=== PATIENT | female | born 1955 | race Caucasian/White ===

== ENCOUNTER → 2018-02-01 10:12 | Outpatient (CLI) | payer OTHER, SELFPAY ==
--- NOTE | 2018-02-01 10:15 | RAD_ITS ---
STUDY: X-RAY - RIGHT KNEE REASON FOR EXAM: Female, 62 years old. Three-year follow-up total knee replacement TECHNIQUE: 4 view(s) of the knee. COMPARISON: Prior study of 01/31/2016 FINDINGS: Status post total right knee replacement changes are seen with implants appearing in good position. There is no evidence of implant loosening or new associated fracture or dislocation. RAD/Knee 4 or More Views IMPRESSION: Status post total right knee replacement changes seen with implants appearing in good position. There is no evidence of implant loosening or new associated fracture or dislocation. Findings appear stable in the interval. Electronically Signed: Misael Edmonds MD at 22:58 EDT , Service support ,
--- NOTE | 2018-02-01 10:20 | RAD_ITS ---
STUDY: X-RAY - LEFT KNEE REASON FOR EXAM: Female, 62 years old. Three-year follow-up, total knee replacement TECHNIQUE: 4 view(s) of the knee. COMPARISON: Previous study of January 31, 2016 FINDINGS: Status post total left knee replacement changes are seen with implants appearing in good position. There is no evidence of implant loosening or new associated fracture or dislocation. Findings are stable in the interval. RAD/Knee 4 or More Views IMPRESSION: Status post total left knee replacement changes with implants appearing in good position. There is no evidence of implant loosening or new associated fracture or dislocation. Electronically Signed: Misael Edmonds MD at 23:56 EDT , Service support ,
== END ==
PROVIDERS: Family Provider Family Medicine; PCP Family Medicine; Visit Provider Orthopaedic Surgery
DX: Z96.651 Presence of right artificial knee joint (principal); Z96.652 Presence of left artificial knee joint
CPT/HCPCS: 73564

== ENCOUNTER → 2021-06-12 06:32 | Outpatient (CLI) | payer OTHER, SELFPAY ==
--- NOTE | 2021-06-12 06:38 | RAD_ITS ---
STUDY: X-RAY - LEFT WRIST REASON FOR EXAM: Female, 65 years old. Pain. TECHNIQUE: 3 view(s) of the wrist were obtained. COMPARISON: None. FINDINGS: Generalized osteopenia. Mild arthrosis of the radiocarpal articulation. Moderate arthrosis of the radiocarpal row. Moderate to severe arthrosis of the first CMC joint with multiple small intra-articular osteochondral bodies. Moderate arthrosis of the visualized MCP joints. The soft tissue structures are unremarkable. RAD/Wrist min 3 Views IMPRESSION: Osteopenia with moderate osteoarthritic changes as described. 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 Electronically Signed: Aamir Burgos MD at 13:10 EDT , Service support ,
--- NOTE | 2021-06-12 06:39 | RAD_ITS ---
STUDY: X-RAY - RIGHT HAND REASON FOR EXAM: Female, 65 years old. PAIN TECHNIQUE: 2 view(s) of the hand. COMPARISON: None. FINDINGS: Normal radiocarpal articulation. Normal distal radioulnar joint. Normal visualized carpal bones. Normal carpal articulations There is degenerative arthrosis of the carpometacarpal articulation of the thumb with lateral subluxation of the first metacarpus. Normal second through fifth carpometacarpal joints. Normal metacarpi. There is degenerative arthrosis of the metacarpophalangeal (MCP) joints. Normal interphalangeal joint of the thumb. Normal proximal and distal phalanges of the thumb. Normal metacarpophalangeal joints of the second through fifth fingers. There is diffuse articular joint space narrowing of the proximal and distal interphalangeal joints of the second through fifth fingers, but without erosive changes or periarticular soft tissue swelling. Normal phalanges of the second through fifth fingers. Soft tissue swelling. RAD/Hand 2 Views IMPRESSION: Degenerative changes at the proximal and distal interphalangeal joints. Degenerative changes at the second and third metacarpophalangeal joints. Soft tissue swelling. Electronically Signed: Lang Frias MD at 10:19 EDT , Service support ,
--- NOTE | 2021-06-12 06:39 | RAD_ITS ---
STUDY: X-RAY - LEFT HAND REASON FOR EXAM: Female, 65 years old. And pain. TECHNIQUE: 2 view(s) of the hand. COMPARISON: None. FINDINGS: Generalized osteopenia. Mild arthrosis at the radiocarpal articulation. Moderate arthrosis of the radiocarpal row. Severe arthrosis of the first CMC joint. Moderate arthrosis of the MTP and IP joints with osteophyte formation at the second MCP joint. Central erosive changes of the DIP joint of the third digit, the PIP joint of the fourth digit and the DIP joint of the fifth digit. The soft tissue structures are unremarkable. RAD/Hand 2 Views IMPRESSION: Osteopenia with osteoarthritic changes as described. Central erosions of the DIP joint of the third digit, PIP joint of the fourth digit and the DIP joint of the fifth digit. No acute abnormality. Electronically Signed: Aamir Burgos MD at 13:08 EDT , Service support ,
--- NOTE | 2021-06-12 06:39 | RAD_ITS ---
STUDY: X-RAY - RIGHT WRIST REASON FOR EXAM: Female, 65 years old. Pain. TECHNIQUE: 3 view(s) of the wrist were obtained. COMPARISON: None. FINDINGS: Generalized osteopenia. Mild arthrosis of the radiocarpal articulation. Moderate arthrosis of the radiocarpal row. Moderate to severe arthrosis of the first CMC joint with multiple small intra-articular osteochondral bodies. Moderate arthrosis of the visualized MCP joints. The soft tissue structures are unremarkable. RAD/Wrist min 3 Views IMPRESSION: Osteopenia with moderate osteoarthritic changes as described. 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 Electronically Signed: Aamir Burgos MD at 13:10 EDT , Service support ,
== END ==
PROVIDERS: PCP Family Medicine; Referring Provider Physician Assistant; Visit Provider Family Medicine
DX: M25.531 Pain in right wrist (principal); M25.532 Pain in left wrist; M79.644 Pain in right finger(s); M79.645 Pain in left finger(s)
CPT/HCPCS: 73110; 73120

== ENCOUNTER → 2021-08-07 11:12 | Outpatient (CLI) | payer OTHER, SELFPAY ==
--- NOTE | 2021-08-07 11:15 | RAD_ITS ---
STUDY: X-RAY - LEFT SHOULDER REASON FOR EXAM: Female, 66 years old. Shoulder pain for 3 weeks. Lifting injury. TECHNIQUE: 4 view(s) of the shoulder. COMPARISON: None. FINDINGS: Normal glenohumeral articulation. Normal acromioclavicular joint. Normal acromion. There is no acute fracture, dislocation or destructive osseous pathology. There is demineralization of the humerus and visualized osseous structures. The soft tissue structures are unremarkable. Normal visualized pulmonary apex. RAD/Shoulder min 2 Views IMPRESSION: Osteopenia. There is no acute fracture or dislocation. Electronically Signed: Zhou Leiva DO at 16:08 EDT Tel [phone], Service support ,
== END ==
PROVIDERS: PCP Family Medicine; Referring Provider Physician Assistant; Visit Provider Physician Assistant
DX: M25.512 Pain in left shoulder (principal)
CPT/HCPCS: 73030

== ENCOUNTER 2021-08-30 16:00 | Outpatient (RCR) | payer OTHER, SELFPAY ==
--- NOTE | 2021-09-02 10:58 | MASS.EVAL ---
Massage Therapy Evaluation: Initial Evaluation Date: 08/30/2021 SUBJECTIVE: Cris is a 66 year old female who was referred to the [facility] facility for a massotherapy evaluation by Dr. Monterroso with the diagnosis of neck pain. She presents today with the symptoms of pain, stiffness and tension in the neck, head, mid back, low back, and hips. Cris reports having a past medical history of neck and back pain and complains of radiating pain from her neck into her shoulders. OBJECTIVE: Upon observation Cris has poor posture with her head and shoulders forward from the neutral position in sitting and standing. After examination and palpation, I found Cris to have high muscle tension with tenderness and myofascial restrictions in her sub occipitals, levator scapulae, trapezius, rhomboids, scalenes, and thoracic paraspinals. Her QL?s, lumbar paraspinals, piriformis, ITB?s, glute medius and minimus all were very tight with fascial restrictions, tender points and trigger points. The first treatment consisted of a one hour massage to her upper body with myofascial release, muscle stripping, trigger point compression techniques, and cervical manual traction. ASSESSMENT: I feel that Cris is a good candidate for massotherapy at this time. She had a favorable response to the first treatment with reduction in her muscle aches, pain, and tension. She also had improvement in her cervical flexibility and low back flexibility. PLAN: The plan of care was reviewed with the patient. The patient is to be seen on an as needed basis for a total of ten sessions with the recommendation of once every month for a one hour treatment.
--- NOTE | 2021-11-18 12:58 | MASS.DISCH ---
Massage Therapy Discharge Summary: Discharge Date: 11/18/2021 Cris was seen for a massotherapy evaluation on 08/30/2021 with the diagnosis of neck pain. She was treated with one session of a one of massage to the upper body and hamstrings. At this time this patient is being discharged from our care at [facility] facility.
== END 2021-08-30 19:00 | disposition home or self-care (01) ==
LOC: MASS 16:00
PROVIDERS: PCP Family Medicine; Referring Provider Family Medicine; Visit Provider Family Medicine
DX: M54.2 Cervicalgia (principal)
CPT/HCPCS: 97124

== ENCOUNTER → 2022-09-13 | Outpatient (CLI) | payer MEDICARE, SELFPAY ==
[2022-09-13 10:29] LABS: Erythrocyte Sedimentation Rate 42 mm/hr (0-30)
[2022-09-13 11:26] LABS: CRP 5.38 mg/L (0.0-3.0); Rheumatoid Factor < 10.0 IU/mL (<15)
[2022-09-16 17:29] LABS: Anti-Nuclear Antibody Test Negative (.)
== END | disposition home or self-care (01) ==
LOC: MTLAB 09:43 → LAB 09:43
PROVIDERS: PCP Family Medicine; Referring Provider Physician Assistant; Visit Provider Physician Assistant
DX: M25.50 Pain in unspecified joint (principal)
CPT/HCPCS: 36415; 85652; 86038; 86140; 86431

== ENCOUNTER 2024-04-09 09:46 | Emergency (ER) | payer MEDICARE, SELFPAY ==
[2024-04-09 09:46] VITALS: BP 206/91; BP 210/97; PULSE 79; PULSE 81; RESP 14; TEMP 36.1; O2SAT 96; O2SAT 98; BMI 38.9
--- NOTE | 2024-04-09 10:18 | EKG12_ITS ---
Test Reason : HTN Blood Pressure : / mmHG Vent. Rate : 067 BPM Atrial Rate : 067 BPM P-R Int : 136 ms QRS Dur : 078 ms QT Int : 416 ms P-R-T Axes : 041 046 055 degrees QTc Int : 439 ms Normal sinus rhythm Low voltage QRS Borderline ECG Confirmed by Yoel Akins ([id number]), communications editor ALEX PAVON ([id number]) on 04/11/2024 9:06:55 AM Referred By: Confirmed By:Yoel Akins
--- NOTE | 2024-04-09 10:19 | EDS_ITS ---
HPI History of Present Illness Chief Complaint: Hypertension Detail of Chief Complaint: Hypertension Informant: patient Narrative Narrative: Patient presents to the emergency department complaint of elevated blood pressure today. Patient states that she had cataract surgery yesterday. Patient has some mild discomfort to her eyes. She denies headache. She denies chest pain or shortness of breath. She took her blood pressure this morning when she does every morning and it was 185/100. Patient states 2 days ago her blood pressure was 167/95 and had her lisinopril increased to 20 mg a day. She took her blood pressure immediately after taking her lisinopril this morning. Patient also states that she had a cough for about 5 days and was told to take Mucinex DM. She denies feeling short of breath. She denies fevers or chills. She denies urinary symptoms. PFSH PFS Home Medications ?Medication ?Instructions ?Recorded ?Last Taken ?Type magnesium 30 mg tablet 30 mg PO QODAY 02/02/14 Unknown History duloxetine 30 mg capsule,delayed 30 mg PO DAILY ##30 02/20/14 Unknown Rx release fentanyl 50 mcg/hr transdermal 50 mcg TRANSDERM. Q3D ##10 02/20/14 Unknown Rx patch ferrous sulfate 325 mg (65 mg 325 mg PO TIDCM ##90 02/20/14 Unknown Rx iron) tablet hydrocodone-acetaminophen 5-325mg 1 tab PO Q6H PRN PRN Moderate 02/20/14 Unknown Rx 5mg-325mg Pain (4-05/02) ##60 zolpidem 5 mg tablet 10 mg (2 x 5 mg) PO QHS PRN PRN 02/20/14 Unknown Rx INSOMNIA ##20 atorvastatin 10 mg tablet 10 mg PO QHS cholesterol 04/09/24 Unknown History celecoxib 100 mg capsule 100 mg PO BID 04/09/24 Unknown History escitalopram oxalate 20 mg tablet 20 mg PO DAILY 04/09/24 Unknown History lisinopril 20 mg tablet 20 mg PO DAILY 04/09/24 Unknown History ofloxacin 0.3 % eye drops 1 drp LEFT EYE 4X/DAY 04/09/24 Unknown History Allergy/AdvReac Type Severity Reaction Status Date / Time codeine AdvReac Nausea Verified 04/04/24 16:20 Social History Smoking Status: Current every day smoker ROS ROS ED ROS Narrative Hypertension Review of Systems ROS Unobtainable: other Constitutional Constitutional ED: Reports lethargy; Denies chills, fever(s), sweats or weight loss Eyes Eyes: Denies blurry vision, change in vision or diplopia ENT ENT ED: Denies rhinorrhea or sore throat Cardiovascular Cardiovascular: Reports chest pain and racing heartbeat; Denies orthopnea Respiratory/Chest Respiratory/Chest: Reports cough, dyspnea and dyspnea on exertion; Denies orthopnea or sputum Gastrointestinal Gastrointestinal: Denies abdominal pain, diarrhea, nausea or vomiting Genitourinary Genitourinary ED: Denies dysuria, hematuria or urinary frequency Musculoskeletal Musculoskeletal: Denies arthralgias, back pain, myalgias or neck pain Integumentary Denies abscess, Abrasions or rash Neurologic Neurologic: Denies headache(s) or weakness Psychiatric Psychiatric: Denies anxiety, depression or suicidal thoughts Endocrine Endocrinology: Denies polydipsia, polyphagia or polyuria Hematologic/Lymphatic Hematologic/Lymphatic: Denies easy bleeding, easy bruising or lymphadenopathy Allergic/Immunologic Allergic/Immunologic ED: Denies mouth swelling, tongue swelling or urticaria EXAM Physical Exam Const Vital Signs: 04/09/24 09:46 04/09/24 09:46 04/09/24 11:41 Temperature 97 F L Temperature Source Temporal Pulse Rate 81 79 Respiratory Rate 14 14 Blood Pressure 206/91 H 210/97 H 193/92 H Blood Pressure Mean 129 134 125 Pulse Ox 96 98 96 Oxygen Delivery Method Room Air Room Air Room Air Positive well nourished and well developed General Appearance ED: well developed and NAD HEENT Reports TM's clear and moist mucous membranes normocephalic and atraumatic; Negative for trauma or tenderness Tympanic Membrane ED: Yes TM's clear Eyes PERRL and EOMs intact bilaterally General Eye ED: Negative for pale conjunctiva or scleral icterus Neck no lymphadenopathy, supple and no JVD General: Negative for tenderness Chest Wall inspection of chest normal and palpation of chest normal Chest: Negative for tenderness Resp normal respiratory effort and clear to auscultation bilaterally Effort and Inspection: Negative for respiratory distress or pain with movement Auscultation: Negative for rhonchi, wheezes or diminished lung sounds Cardio regular rate, regular rhythm, S1 normal heart sound, S2 normal heart sound and no murmurs Peripheral Pulses: pulses 2+ throughout GI normal to inspection, nondistended, normoactive bowel sounds, soft to palpation, non-tender, non-distended and no masses Back/Spine no CVA tenderness and no thoracic nor lumbar tenderness Extremity normal to inspection General Extremety ED: Negative for edema General Extremity: Negative for edema Neuro oriented x3, CN's II-XII intact bilaterally, no sensory deficits noted and gait normal Sensorium / Orientation: awake, alert, oriented to person, oriented to place and oriented to time Motor Exam: strength 5/5 throughout and strength abnormal Psych mental status grossly normal Skin no rashes or lesions noted and no wounds MDM MDM MDM Narrative Medical decision making narrative: Patient presents to the emergency department complaint of hypertension. She has a history of hypertension and recently had her lisinopril increased. Also currently taking Mucinex DM. Suspect blood pressure may be elevated related to the Mucinex DM. Will obtain basic labs and EKG. EKG obtained arrival showed a sinus rhythm with rate of 67 bpm with no acute ST segment changes. CBC with differential showed a white count 6.3 with hemoglobin 13.3 and platelet count of 277. Chemistries unremarkable. Troponin was normal at 9. BUN 13 and creatinine 0.85. Chest x-ray unremarkable. While observing patient in the ER her blood pressure latest is 180s over 90s. Will give her 1 dose of hydralazine 5 mg IV and will discharge to home. Clinically she looks well. I advised her to discontinue her Mucinex dm. Advised her to keep a journal of her blood pressures and follow-up with her primary care physician within next 5 to 7 days. Lab Data Attestation: I reviewed the patient's lab results. Labs: Laboratory Results - last 24 hr 04/09/24 10:10 WBC 6.3 RBC 4.65 Hgb 13.3 Hct 43.0 MCV 92.5 MCH 28.6 MCHC 30.9 L RDW Std Deviation 45.6 H RDW Coeff of Sadie 13.3 Plt Count 277 MPV 9.9 Immature Gran % (Auto) 0.500 Neut % (Auto) 51.6 Lymph % (Auto) 37.9 [place] % (Auto) 5.7 Eos % (Auto) 3.7 Baso % (Auto) 0.6 Absolute Neuts (auto) 3.2 Absolute Lymphs (auto) 2.38 Nucleated RBC % 0 Sodium 140 Potassium 4.0 Chloride 107 Carbon Dioxide 29.0 Anion Gap 4 L BUN 13 Creatinine 0.85 Estim Creat Clear Calc 66.83 Est GFR (MDRD) Af Amer 85 Est GFR (MDRD) Non-Af 70 BUN/Creatinine Ratio 15.3 Glucose 102 Calcium 9.1 Troponin I High Sens 9 Radiography Diagnostic Testing: Clinical Impression(s) from Imaging Studies Chest X-Ray 04/09/24 10:40 IMPRESSION: Mild cardiomegaly. Electronically Signed: Rodrigo Momin MD at 10:54 EDT Reading Location ID and State: [facility] / [place] Tel , Service support , 1 view chest x-ray obtained interpreted by myself as no evidence of infiltrate or pneumothorax or acute disease process. Radiology in agreement felt there was mild cardiomegaly. EKG Initial EKG: Attestation: I personally reviewed and interpreted this EKG as follows: Comments: Sinus rhythm with rate of 67 bpm with no acute ST segment changes Discharge Plan Triage Chief Complaint: Hypertension ED Provider: Talia Nunez Dx/Rx/DC Orders Clinical Impression: Hypertension Instructions: ED Hypertension, Established Prescriptions: No Action magnesium 30 MG tablet 30 mg PO QODAY Patient Comments: supplement fentanyl 50 MCG patch 50 mcg TRANSDERM. Q3D Qty: 10 0RF Patient Comments: PAIN PATCH hydrocodone-acetaminophen 1 TABLET tablet 1 tab PO Q6H PRN PRN (Reason: Moderate Pain (4-6/10)) Qty: 60 0RF Patient Comments: PAIN ferrous sulfate 325 MG tablet 325 mg PO TIDCM Qty: 90 0RF Patient Comments: IRON SUPPLEMENT zolpidem 5 MG tablet 10 mg PO QHS PRN PRN (Reason: INSOMNIA) Qty: 20 0RF Patient Comments: INSOMNIA duloxetine 30 MG capsule 30 mg PO DAILY Qty: 30 0RF Patient Comments: DEPRESSION/PAIN atorvastatin 10 mg tablet 10 mg PO QHS ofloxacin 0.3 % drops 1 drp LEFT EYE 4X/DAY lisinopril 20 mg tablet 20 mg PO DAILY celecoxib 100 mg capsule 100 mg PO BID escitalopram oxalate 20 mg tablet 20 mg PO DAILY Primary Care Provider: Fitz Burger Referrals: Fitz Burger MD [Primary Care Provider] - 5-7 Days Print Language: Georgian Disposition Disposition: Home, Self Care
[2024-04-09 10:32] LABS: Absolute Lymphocyte Count 2.38 X10^3/uL (0.83-4.51); Absolute Neutrophil Count 3.2 X10^3/uL (2.0-7.7); Basophil# 0.04 X10^3/uL; Basophil% 0.6 % (0-1); Eosinophil# 0.23 X10^3/uL; Eosinophils% 3.7 % (0-5); Hemoglobin 13.3 g/dL (12.0-15.0); Lymphocyte # 2.38 X10^3/ul (0.83-4.51); Lymphocyte % 37.9 % (19-41); Mean Corp Hgb Conc 30.9 g/dL (32-36); Mean Corpuscular Hgb 28.6 pg (27.0-32.0); Mean Corpuscular Volume 92.5 fL (81-99); Mean Platelet Vol. 9.9 fl (6.2-12.0); Monocyte# 0.36 X10^3/uL; Monocyte% 5.7 % (0-10); NRBC Flagged by Analyzer 0 % (0-5); Neutrophil # 3.24 X10^3/uL (2.7-7.7); Neutrophil % 51.6 % (47-70); Platelet Count 277 K/mm3 (150-450); RBC Distribution Width CV 13.3 % (11.6-14.6); RBC Distribution Width SD 45.6 fl (35.1-43.9); Red Blood Count 4.65 M/mm3 (4.2-5.4); White Blood Count 6.3 K/mm3 (4.4-11.0)
--- NOTE | 2024-04-09 10:40 | RAD_ITS ---
EXAM: XR CHEST, 1 VIEW CLINICAL INDICATION: htn TECHNIQUE: Frontal view of the chest. COMPARISON: No relevant prior studies available. FINDINGS: LUNGS AND PLEURAL SPACES: Normal. No consolidation or edema. No pneumothorax. No effusion. HEART: Heart is mildly enlarged. MEDIASTINUM: No mediastinal or hilar mass. BONES/JOINTS: No acute abnormality. RAD/Chest 1 View (Portable) IMPRESSION: Mild cardiomegaly. Electronically Signed: Rodrigo Momin MD at 10:54 EDT ,
[2024-04-09 10:49] LABS: Anion Gap 4 (5-15); BUN 13 mg/dL (7-18); BUN/Creat Ratio 15.3 RATIO (10-20); Calcium,Total 9.1 mg/dL (8.5-10.1); Chloride 107 mmol/L (98-107); Creatinine, Serum 0.85 mg/dL (0.55-1.02); EST Glomerular Filtration Rate 70 mL/min (>60); Est Glom Filt Rate - Afr Amer 85 mL/min (>60); Estimated Creatinine Clearance 66.83 ml/min; Glucose 102 mg/dL (74-106); Sodium Level 140 mmol/L (136-145); Troponin-I HS 9 pg/mL (3.0-54.0)
[2024-04-09 11:41] VITALS: BP 193/92; O2SAT 96
[2024-04-09] MEDS: hydrALAZINE 20 MG/ML Vial 5 MG IV (12:03)
[2024-04-09 12:08] VITALS: BP 179/81; PULSE 69; RESP 20; TEMP 36.6; O2SAT 96
== END 2024-04-09 12:16 | disposition home or self-care (01) ==
PROVIDERS: Emergency Provider Emergency Medicine; PCP Family Medicine; Visit Provider Emergency Medicine
DX: I10 Essential (primary) hypertension (principal); F17.200 Nicotine dependence, unspecified, uncomplicated; Z98.890 Other specified postprocedural states; Z79.899 Other long term (current) drug therapy; R07.9 Chest pain, unspecified
CPT/HCPCS: 71045; 80048; 84484; 85025; 93005; 96374; 99284; A4216